=== PATIENT | female | born 1955 | race Caucasian/White ===

== ENCOUNTER 2023-10-16 23:09 | Inpatient (IN) | payer MEDICARE, OTHER ==
[2023-10-17] MEDS ORDERED: ceFAZolin 2 GM Vial ONE (04:00)
[2023-10-17] MEDS ORDERED: Propofol 200 MG/20 ML SDV ONE (04:17)
[2023-10-17] MEDS ORDERED: fentaNYL 100 MCG/2 ML SDV ONE (04:17)
[2023-10-17] MEDS ORDERED: Lidocaine 1% 2 ML ONE ×2 (04:18→04:59)
[2023-10-17] MEDS ORDERED: dexmedeTOMIDine HCl 200 MCG/2 ML SDV ONE (04:45)
[2023-10-17] MEDS ORDERED: Metoclopramide 10 MG/2 ML SDV ONE (04:59)
[2023-10-17] MEDS ORDERED: Succinylcholine 200 MG/10 ML MDV ONE (04:59)
[2023-10-17] MEDS ORDERED: Dexamethasone 4 MG/ML 5 ML MDV ONE (04:59)
[2023-10-17] MEDS ORDERED: Rocuronium 50 MG/5 ML Vial ONE (04:59)
[2023-10-17] MEDS ORDERED: Ondansetron 4 MG/2 ML SDV ONE (04:59)
[2023-10-17] MEDS ORDERED: Lactated Ringers 1,000 ML IV ONE (05:00)
[2023-10-17] MEDS: Bupivacaine 0.5% 30 ML SDV ONE (05:02)
[2023-10-17] MEDS ORDERED: Phenylephrine 1% 10 MG/ML SDV ONE (05:05)
[2023-10-17] MEDS ORDERED: ePHEDrine 50 MG/ML SDV ONE (05:05)
[2023-10-17] MEDS ORDERED: Lactated Ringers 1,000 ML ONE (05:12)
[2023-10-17] MEDS ORDERED: Neostigmine Methylsulfate 10 MG/10 ML MDV ONE (05:18)
[2023-10-17] MEDS ORDERED: Sugammadex Sodium 200 MG/2 ML VIAL IV ONE (05:55)
[2023-10-17] MEDS ORDERED: Ketorolac 15 MG/ML SDV ONE (05:58)
[2023-10-17 12:07] LABS: BASOPHILS ABSOLUTE AUTO 0.1 K/mm3 (0.0-0.2); BASOPHILS PERCENT AUTO 0.6 % (0.0-1.0); EOSINOPHILS ABSOLUTE AUTO 0.1 K/mm3 (0.0-0.4); EOSINOPHILS PERCENT AUTO 0.2 % (0.0-6.0); HEMOGLOBIN 11.6 gm/dl (12.0-16.0); IMMATURE GRAN ABSOLUTE AUTO 1.19 K/mm3 (0.00-0.05); IMMATURE GRAN PERCENT AUTO 4.8 % (0.0-0.4); LYMPHOCYTES ABSOLUTE AUTO 1.4 K/mm3 (1.0-4.8); LYMPHOCYTES PERCENT AUTO 5.5 % (24.0-44.0); MEAN CORPUSCULAR HEMOGLOBIN 29.9 pg (28.0-32.0); MEAN CORPUSCULAR HGB CONC 32.2 g/dl (32.0-36.0); MEAN CORPUSCULAR VOLUME 92.8 fl (83.0-99.0); MEAN PLATELET VOLUME 12.2 fl (9.4-12.3); MONOCYTES ABSOLUTE AUTO 2.5 K/mm3 (0.0-0.8); MONOCYTES PERCENT AUTO 10.2 % (0.0-8.0); NEUTROPHILS ABSOLUTE AUTO 19.5 K/mm3 (1.8-7.7); NEUTROPHILS PERCENT AUTO 78.7 % (41.0-71.0); PLATELET COUNT,PLT 161 K/mm3 (150-400); RED BLOOD CELL COUNT 3.88 M/mm3 (4.10-5.30); WHITE BLOOD CELL COUNT,WBC 24.77 K/mm3 (3.9-11.3)
[2023-10-17 12:09] LABS: SLIDE REVIEW ABNORMAL SMEAR
[2023-10-17 12:32] LABS: A/G RATIO 1.1 (1-2); ALANINE AMINOTRANSFERASE,ALT 48 U/L (14-59); ALBUMIN 3.7 g/dl (3.4-5.0); ALKALINE PHOSPHATASE 183 U/L (46-116); ANION GAP 14.8 (5-15); BILIRUBIN TOTAL 0.2 mg/dL (0.2-1.0); BLOOD UREA NITROGEN,BUN 16 mg/dL (7-18); BUN/CREATININE RATIO 17.8 (14-18); CALCIUM 10.5 mg/dL (8.5-10.1); CARBON DIOXIDE,CO2 25 mEq/L (21-32); CHLORIDE,CL 102 mEq/L (98-107); CREATININE 0.9 mg/dL (0.55-1.02); ESTIMATED GFR 69 mL/min (>60); GLUCOSE RANDOM 151 mg/dL (70-99); POTASSIUM,K 3.8 mEq/L (3.5-5.1); PROTEIN TOTAL,TP 7.1 g/dl (6.4-8.2); SODIUM,NA 138 mEq/L (136-145)
[2023-10-17 12:33] LABS: ASPARTATE AMNIOTRANSFERASE,AST 39 U/L (15-37); LIPASE 52 U/L (16-77)
[2023-10-17] MEDS: Ketorolac 15 MG/ML SDV IVPUSH SCH ×2 (13:34→13:39)
[2023-10-17] MEDS: Enoxaparin 40 MG/0.4 ML Syringe SUBCUT SCH (13:34)
[2023-10-17] MEDS: HYDROmorphone 0.5 MG/0.5 ML Syringe IV PRN (14:04)
[2023-10-17] MEDS: Iopamidol 612 MG/ML 100 ML Bottle IVPUSH ONE (15:31)
[2023-10-17] MEDS: Lactated Ringers 1,000 ML IV SCH (16:30)
[2023-10-17] MEDS: HYDROmorphone 0.5 MG/0.5 ML Syringe ONE ×2 (18:35→18:36)
[2023-10-17] MEDS: Ketorolac 15 MG/ML SDV ONE ×2 (18:35)
[2023-10-17] MEDS: Lactated Ringers 1,000 ML ONE ×3 (18:35→18:36)
[2023-10-17] MEDS: Sodium Chloride 0.9% 1,000 ML ONE (18:36)
[2023-10-17] MEDS: Enoxaparin 40 MG/0.4 ML Syringe ONE (18:36)
[2023-10-17] MEDS: Ondansetron 4 MG/2 ML SDV ONE (18:36)
[2023-10-17 21:50] LABS: APPEARANCE,URINE CLEAR (Clear); BILIRUBIN,URINE NEGATIVE (Negative); COLOR,URINE YELLOW (Yellow); GLUCOSE,URINE NEGATIVE (Negative); KETONES,URINE NEGATIVE (Negative); LEUKOCYTE ESTERASE,URINE NEGATIVE (Negative); NITRITE,URINE NEGATIVE (Negative); OCCULT BLOOD,URINE NEGATIVE (Negative); PROTEIN,URINE 1+ (Negative); UROBILINOGEN,URINE 0.2 (0.2-1.0)
[2023-10-17 21:56] LABS: RBC,URINE 0-5 /hpf (0-5); SQUAMOUS EPITHELIAL CELLS,UR 0-5 /hpf (0-5)
[2023-10-17 21:57] LABS: BACTERIA,URINE FEW /hpf (FEW); MUCUS,URINE FEW /hpf (FEW)
[2023-10-18 05:52] LABS: ALBUMIN 2.7 g/dl (3.4-5.0); ANION GAP 11.4 (5-15); BILIRUBIN TOTAL 0.3 mg/dL (0.2-1.0); BUN/CREATININE RATIO 23.3 (14-18); CALCIUM 9.3 mg/dL (8.5-10.1); CREATININE 0.9 mg/dL (0.55-1.02); EST CRCL DRUG DOSING (CG) 42.02 mL/min; MAGNESIUM 1.5 mg/dL (1.8-2.4); POTASSIUM,K 4.4 mEq/L (3.5-5.1); PROTEIN TOTAL,TP 5.5 g/dl (6.4-8.2)
[2023-10-18 05:59] LABS: HEMATOCRIT 28.7 % (37.0-47.0); HEMOGLOBIN 9.2 gm/dl (12.0-16.0); MEAN CORPUSCULAR HGB CONC 32.1 g/dl (32.0-36.0); MEAN CORPUSCULAR VOLUME 93.5 fl (83.0-99.0); MEAN PLATELET VOLUME 12.3 fl (9.4-12.3); PLATELET COUNT,PLT 119 K/mm3 (150-400); RED BLOOD CELL COUNT 3.07 M/mm3 (4.10-5.30); WHITE BLOOD CELL COUNT,WBC 15.19 K/mm3 (3.9-11.3)
[2023-10-18] MEDS: Magnesium Sulfate/Water 2 GM in Premix Bag 1 BAG IV ONE (07:32)
[2023-10-18] MEDS: Melatonin 3 MG Tab PO PRN (21:01)
[2023-10-19 05:30] LABS: HEMATOCRIT 28.8 % (37.0-47.0); MEAN CORPUSCULAR HEMOGLOBIN 29.6 pg (28.0-32.0); MEAN CORPUSCULAR HGB CONC 31.3 g/dl (32.0-36.0); MEAN CORPUSCULAR VOLUME 94.7 fl (83.0-99.0); MEAN PLATELET VOLUME 11.4 fl (9.4-12.3); PLATELET COUNT,PLT 130 K/mm3 (150-400); RED BLOOD CELL COUNT 3.04 M/mm3 (4.10-5.30); WHITE BLOOD CELL COUNT,WBC 16.16 K/mm3 (3.9-11.3)
[2023-10-19 05:38] LABS: ANION GAP 15.1 (5-15); BUN/CREATININE RATIO 21.3 (14-18); CALCIUM 9.7 mg/dL (8.5-10.1); CREATININE 0.8 mg/dL (0.55-1.02); EST CRCL DRUG DOSING (CG) 47.46 mL/min; POTASSIUM,K 4.1 mEq/L (3.5-5.1)
[2023-10-19] MEDS: Lithium Carbonate 300 MG Cap PO SCH ×2 (11:41→12:43)
[2023-10-19] MEDS: ClonazePAM 1 MG Tab PO PRN (20:39)
[2023-10-19] MEDS: QUEtiapine 25 MG Tab PO SCH (20:39)
[2023-10-19] MEDS ORDERED: Lithium Carbonate 300 MG Tab.ER PO SCH (21:00)
[2023-10-19] MEDS: Lithium Carbonate 300 MG Tab.ER PO ONE (21:13)
[2023-10-20] MEDS: oxyCODONE 5 MG Tab PO PRN (08:03)
[2023-10-20] MEDS: Acetaminophen 325 MG Tab PO PRN (09:07)
== END 2023-10-20 11:24 | disposition home or self-care (01) | DRG 337 ==
LOC: JD.ED 23:09 → JD.ICU 10-17 12:28
PROVIDERS: ADMIT Surgery; ATTEND Surgery
PROC: 0D9670Z Drainage of Stomach with Drainage Device, Via Natural or Artificial Opening (ICD-10-PCS; 2023-10-17)
PROC: 0DNG0ZZ Release Left Large Intestine, Open Approach (ICD-10-PCS; principal; 2023-10-17 04:00)
DX: K56.609 Unspecified intestinal obstruction, unspecified as to partial versus complete obstruction (principal); K46.0 Unspecified abdominal hernia with obstruction, without gangrene; Z85.048 Personal history of other malignant neoplasm of rectum, rectosigmoid junction, and anus; Z93.3 Colostomy status; D72.829 Elevated white blood cell count, unspecified
CPT/HCPCS: 00790; 36415; 71045; 71045-26; 74177; 74177-26; 80048; 80053; 81001; 83605; 83690; 83735; 85025; 85027; 96360; 96361; 99285; 99285-25; A9270-GY; J0330; J0665; J0690; J1100; J1170; J1650; J1885; J2371; J2405; J2704; J2710; J2765; J3010; J3475; J3490; J7030; J7120; Q9967